=== PATIENT | male | born 1940 | race Caucasian/White ===

== ENCOUNTER 2023-10-09 02:17 | Inpatient (IN) | payer MEDICARE, OTHER ==
[2023-10-09 03:07] LABS: #Eosinphils 0.1 thou/uL (0.0-0.7); #Monocytes 1.2 thou/uL (0.11-0.59); #Neutrophils 7.9 thou/uL (1.40-6.50); %Basophils 0.2 % (0.0-1.0); %Eosinophils 0.9 % (0.0-10.0); %Lymphocytes 5.2 % (21.0-51.0); %Monocytes 12.1 % (0.0-10.0); %Neutrophils 81.4 % (42.0-75.0); Hematocrit 37.1 % (42.0-52.0); Hemoglobin 12.3 g/dL (14.0-18.0); Mean Corpuscular HGB CONC 33.2 g/dL (32.0-36.0); Mean Corpuscular Hemoglobin 31.4 pg (27.0-31.0); Mean Corpuscular Volume 94.6 fl (78.0-98.0); Mean Platelet Volume 10.6 fL (7.4-10.4); Platelet Count 166 10x3/uL (130-400); RBC Distribution Width 15.9 % (11.5-14.5); Red Blood Cell (RBC) Count 3.92 mill/uL (4.70-6.10); White Blood Cell (WBC) Count 9.7 10x3/uL (4.8-10.8)
[2023-10-09 03:24] LABS: ALT (SGPT) 16 U/L (8-55); AST (SGOT) 26 U/L (5-34); Albumin 3.9 g/dL (3.4-4.8); Alkaline Phosphatase 90 U/L (40-110); Anion Gap 13 mmol/L (10-20); BUN (Urea Nitrogen) 21 mg/dL (8.4-25.7); Bilirubin, Total 1.7 mg/dL (0.2-1.2); Calc. Creatinine Clearance 0 mL/min (70-130); Carbon Dioxide 29 mmol/L (23-31); Chloride 102 mmol/L (98-107); Estimated GFR 66; Globulin 3.2 g/dL (2.4-3.5); Glucose 171 mg/dL (83-110); Potassium 4.2 mmol/L (3.5-5.1); Protein, Total 7.1 g/dL (5.8-8.1); Sodium 140 mmol/L (136-145)
[2023-10-09 03:27] LABS: Troponin I 0.045 ng/mL (< 0.028)
[2023-10-09 03:32] LABS: Lipase 6 U/L (8-78)
[2023-10-09] MEDS ORDERED: Furosemide 40 MG (4 mL) VIAL ONE ×2 (05:12→14:09)
[2023-10-09 05:56] LABS: Influenza A by NAA Not Detected (NotDetected); Influenza B by NAA Not Detected (NotDetected); SARS-CoV-2 NAA Rapid Test Not Detected (NotDetected)
[2023-10-09 06:06] LABS: Troponin I 0.072 ng/mL (< 0.028)
[2023-10-09] MEDS ORDERED: Nitroglycerin 2% Ointment 1 INCH/1 GM Packet ONE (06:21)
[2023-10-09] MEDS ORDERED: Aspirin Chewable 81 MG TAB ONE (06:22)
[2023-10-09 06:28] LABS: Bacteria/HPF None Seen HPF (None Seen); Bilirubin Negative (Negative); Blood, Urine 3+ (Negative); CAUTI Indications for Culture Dysuria,urgency,freq; Clarity Clear (Clear); Glucose, Urine (Dipstick) Normal (Negative); Ketone, Urine Negative (Negative); Leukocyte 25 Leu/uL (Negative); Nitrite Negative (Negative); Protein, Urine (Dipstick) 50 mg/dL (Neg-Trace); RBC/HPF 21-50 HPF (0-3); Squamous Epithelial 0-3 HPF (0-3); Urobilinogen Normal mg/dL (Less than 2); pH, Urine 5.5 (5.0-9.0)
[2023-10-09 06:31] LABS: Specific Gravity, Urine 1.047 (1.002-1.036); Urine Culture Reflex No No
[2023-10-09 08:36] LABS: Troponin I 0.052 ng/mL (< 0.028)
[2023-10-09] MEDS ORDERED: Ondansetron ODT 4 MG TAB PO PRN (10:55)
[2023-10-09] MEDS ORDERED: Ondansetron PF 4 MG/2 ML Vial IVP PRN (10:55)
[2023-10-09 12:10] LABS: Troponin I 0.041 ng/mL (< 0.028)
[2023-10-09] MEDS ORDERED: cefTRIAXone (ROCEPHIN) 1 GM VIAL ONE ×2 (14:09→14:14)
[2023-10-09] MEDS ORDERED: Sodium Chloride 0.9% 100 ML ONE ×2 (14:09→14:13)
[2023-10-09] MEDS: Furosemide 40 MG (4 mL) VIAL SLOW IVP SCH (14:17)
[2023-10-09] MEDS: cefTRIAXone\\ROCEPHIN 1 GM in Sodium Chloride 0.9% 100 ML IVPB SCH (14:22)
[2023-10-09 17:48] VITALS: BMI 27.3
[2023-10-09] MEDS: Gabapentin 300 MG CAP PO SCH (20:44)
[2023-10-09] MEDS: DULoxetine 30 MG CAP PO SCH (20:45)
[2023-10-09] MEDS: Apixaban 5 MG TAB PO SCH (20:45)
[2023-10-09] MEDS ORDERED: Non-Formulary Item 1 EACH (Omeprazole [Omeprazole] 20 MG Tablet.Dr) PO SCH (21:00)
[2023-10-10 04:38] LABS: #Eosinphils 0.3 thou/uL (0.0-0.7); #Neutrophils 4.5 thou/uL (1.40-6.50); %Basophils 0.4 % (0.0-1.0); %Monocytes 14.3 % (0.0-10.0); %Neutrophils 64.2 % (42.0-75.0); Hematocrit 34.7 % (42.0-52.0); Hemoglobin 11.4 g/dL (14.0-18.0); Mean Corpuscular HGB CONC 32.9 g/dL (32.0-36.0); Mean Corpuscular Hemoglobin 30.9 pg (27.0-31.0); Platelet Count 138 10x3/uL (130-400); RBC Distribution Width 15.6 % (11.5-14.5); Red Blood Cell (RBC) Count 3.69 mill/uL (4.70-6.10); White Blood Cell (WBC) Count 7.1 10x3/uL (4.8-10.8)
[2023-10-10 04:55] LABS: ALT (SGPT) 10 U/L (8-55); AST (SGOT) 19 U/L (5-34); Albumin 3.4 g/dL (3.4-4.8); Alkaline Phosphatase 73 U/L (40-110); Anion Gap 16 mmol/L (10-20); BUN (Urea Nitrogen) 24 mg/dL (8.4-25.7); Bilirubin, Direct 0.6 mg/dL (0.1-0.3); Bilirubin, Total 1.5 mg/dL (0.2-1.2); Calc. Creatinine Clearance 65 mL/min (70-130); Calcium 8.6 mg/dL (7.8-10.44); Carbon Dioxide 29 mmol/L (23-31); Chloride 100 mmol/L (98-107); Estimated GFR 66; Glucose 100 mg/dL (83-110); Potassium 3.6 mmol/L (3.5-5.1); Protein, Total 6.4 g/dL (5.8-8.1); Sodium 141 mmol/L (136-145)
[2023-10-10] MEDS ORDERED: Enoxaparin 40 MG (0.4 mL) SYRINGE SC SCH (09:00)
[2023-10-10] MEDS ORDERED: Non-Formulary Item 1 EACH (Ferrous Sulfate [Ferrous Sulfate] 325 MG Tab) PO SCH (09:00)
[2023-10-10] MEDS: Atorvastatin Calcium 40 MG TAB PO SCH (10:03)
[2023-10-10] MEDS: Magnesium Oxide 400 MG TAB PO SCH (10:04)
[2023-10-10] MEDS: Clopidogrel Bisulfate 75 MG TAB PO SCH (10:05)
[2023-10-10] MEDS: Multivitamin W/ Minerals 1 TAB PO SCH (10:06)
[2023-10-10] MEDS: Ferrous Sulfate 325 MG TAB PO SCH (10:06)
[2023-10-11 04:34] LABS: #Basophils 0.1 thou/uL (0.0-0.2); #Eosinphils 0.3 thou/uL (0.0-0.7); #Monocytes 0.9 thou/uL (0.11-0.59); #Neutrophils 4.4 thou/uL (1.40-6.50); %Basophils 0.7 % (0.0-1.0); %Eosinophils 4.6 % (0.0-10.0); %Lymphocytes 19.3 % (21.0-51.0); %Monocytes 13.2 % (0.0-10.0); %Neutrophils 61.8 % (42.0-75.0); Hematocrit 39.1 % (42.0-52.0); Hemoglobin 13.1 g/dL (14.0-18.0); Mean Corpuscular HGB CONC 33.5 g/dL (32.0-36.0); Mean Corpuscular Hemoglobin 31.1 pg (27.0-31.0); Mean Corpuscular Volume 92.9 fl (78.0-98.0); Platelet Count 188 10x3/uL (130-400); Red Blood Cell (RBC) Count 4.21 mill/uL (4.70-6.10); White Blood Cell (WBC) Count 7.1 10x3/uL (4.8-10.8)
[2023-10-11 04:58] LABS: Anion Gap 15 mmol/L (10-20); BUN (Urea Nitrogen) 33 mg/dL (8.4-25.7); Calc. Creatinine Clearance 52 mL/min (70-130); Calcium 9.2 mg/dL (7.8-10.44); Carbon Dioxide 27 mmol/L (23-31); Chloride 98 mmol/L (98-107); Estimated GFR 50; Glucose 115 mg/dL (83-110); Potassium 3.4 mmol/L (3.5-5.1); Sodium 137 mmol/L (136-145)
[2023-10-11] MEDS: Sotalol HCl 80 MG TAB PO SCH (08:34)
[2023-10-11] MEDS: Potassium Chloride 20 MEQ TAB PO SCH (08:34)
[2023-10-11] MEDS: Sodium Chloride 0.9% 250 ML IV SCH (15:04)
[2023-10-11] MEDS: Sodium Chloride 0.9% 250 ML 250 ML IV SCH (15:04)
[2023-10-11 16:07] VITALS: BP 111/71; TEMP 98.2
== END 2023-10-11 17:54 | DRG 291 ==
LOC: SUATTDRO 02:17 → ERS 02:17 → ERHOLD 07:17 → OBSVTOIN 10:19 → 2SW 17:34
PROVIDERS: ADMIT Student in an Organized Health Care Education/Training Program; ATTEND Internal Medicine
PROC: 0T9B70Z Drainage of Bladder with Drainage Device, Via Natural or Artificial Opening (ICD-10-PCS; principal; 2023-10-09)
DX: I11.0 Hypertensive heart disease with heart failure (principal); I50.33 Acute on chronic diastolic (congestive) heart failure; J96.01 Acute respiratory failure with hypoxia; N39.0 Urinary tract infection, site not specified; I5A Non-ischemic myocardial injury (non-traumatic); R00.1 Bradycardia, unspecified; R31.0 Gross hematuria; I48.0 Paroxysmal atrial fibrillation; I77.819 Aortic ectasia, unspecified site; Z96.652 Presence of left artificial knee joint; E78.5 Hyperlipidemia, unspecified; Z86.711 Personal history of pulmonary embolism; Z98.890 Other specified postprocedural states; Z87.891 Personal history of nicotine dependence; Z79.01 Long term (current) use of anticoagulants; R33.9 Retention of urine, unspecified
CPT/HCPCS: 36415; 71045; 71275; 80048; 80053; 80076; 81001; 82248; 83605; 83690; 83880; 84484; 85025; 87040; 87086; 93005; 93306; 96374; J0696; J1940; J3490; J7050